=== PATIENT | male | born 1970 | race Caucasian/White ===

== ENCOUNTER → 2017-09-20 07:39 | Outpatient (CLI) | payer OTHER, SELFPAY ==
[2017-09-20 09:27] LABS: Add Manual Diff / Slide Review NO; Basophils Percent Auto 1.1 % (0-2); Eosinophils Percent Auto 4.8 % (2-4); Hematocrit 43.7 % (41-53); Hemoglobin 15.1 g/dL (13.5-17.5); Lymphocytes Percent Auto 23.6 % (25-40); Mean Corpuscular HGB Conc 34.4 % (30-36); Mean Corpuscular Hemoglobin 32.1 PG (26-34); Mean Corpuscular Volume 93.3 fL (80-100); Monocytes Percent Auto 5.9 % (3-14); Neutrophils Absolute Auto 4200 /uL (3000-5900); Neutrophils Percent Auto 64.6 % (50-75); Platelet Count 188 X10^3/uL (150-400); Red Blood Cell Count 4.68 X10^6/uL (4.5-5.9); Red Cell Distribution Width 14.2 % (11.6-14.8); White Blood Cell Count 6.6 X10^3/uL (4.5-11.0)
[2017-09-20 09:36] LABS: Erythrocyte Sedimentation Rate 5 MM/HR (0-15)
[2017-09-20 09:42] LABS: C-Reactive Protein Quant 0.8 mg/dL (<1.0)
[2017-09-20 09:43] LABS: Rheumatoid Factor < 8.6 IU/mL (<12.0)
== END ==
PROVIDERS: PCP Family Medicine; Visit Provider Family Medicine
DX: M10.072 Idiopathic gout, left ankle and foot (principal)
CPT/HCPCS: 36415; 84550; 85025; 85651; 86140; 86430

== ENCOUNTER → 2020-04-29 08:34 | Outpatient (CLI) | payer OTHER, SELFPAY ==
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
== END ==
PROVIDERS: PCP Family Medicine; Referring Provider Nurse Practitioner Family; Visit Provider Nurse Practitioner Family
DX: M79.89 Other specified soft tissue disorders (principal)
CPT/HCPCS: 73140

== ENCOUNTER → 2020-05-11 15:17 | Outpatient (CLI) | payer OTHER, SELFPAY ==
[2020-05-11] MEDS: COVID-19 VACC, Ad26(JANSSEN)/PF 0.5 ML IM (15:26)
== END ==
PROVIDERS: PCP Family Medicine; Visit Provider Internal Medicine
DX: Z23 Encounter for immunization (principal)
CPT/HCPCS: 0031A; 91303

== ENCOUNTER → 2023-05-03 13:56 | Outpatient (CLI) | payer OTHER, SELFPAY ==
[2023-05-05 01:06] LABS: Fecal Immunochemical Test Negative (Negative)
== END ==
PROVIDERS: PCP Family Medicine; Referring Provider Family Medicine; Visit Provider Family Medicine
DX: Z12.11 Encounter for screening for malignant neoplasm of colon (principal)
CPT/HCPCS: 82274

== ENCOUNTER → 2023-10-11 08:16 | Outpatient (CLI) | payer OTHER, SELFPAY ==
[2023-10-11 08:53] LABS: Add Manual Diff / Slide Review NO; Basophils Absolute Auto 100 /uL (0-100); Basophils Percent Auto 0.7 % (0-2); Eosinophils Absolute Auto 100 /uL (0-450); Eosinophils Percent Auto 2.1 % (2-4); Hemoglobin 15.5 g/dL (13.5-17.5); Lymphocytes Absolute Auto 1800 /uL (1100-4500); Lymphocytes Percent Auto 26.2 % (25-40); Mean Corpuscular HGB Conc 34.5 % (30-36); Mean Corpuscular Hemoglobin 31.5 PG (26-34); Mean Corpuscular Volume 91.3 fL (80-100); Monocytes Absolute Auto 400 /uL (0-900); Monocytes Percent Auto 6.3 % (3-14); Neutrophils Absolute Auto 4500 /uL (1500-7000); Neutrophils Percent Auto 64.7 % (50-75); Platelet Count 167 X10^3/uL (150-400); Red Blood Cell Count 4.93 X10^6/uL (4.5-5.9); Red Cell Distribution Width 13.2 % (11.6-14.8)
[2023-10-11 09:13] LABS: Alanine Aminotransferase 46 IU/L (<50); Albumin 4.6 g/dL (3.5-5.0); Alkaline Phosphatase 111 U/L (38-126); Aspartate Aminotransferase 32 IU/L (17-59); BUN Creatinine Ratio 17.6 (6-22); Bilirubin Total 0.5 mg/dL (0.2-1.3); Blood Urea Nitrogen 18 mg/dL (9-20); Calcium 9.6 mg/dL (8.4-10.2); Carbon Dioxide 24 mmol/L (22-32); Chloride 108 mmol/L (98-107); Cholesterol 186 mg/dL (140-199); Estimated Glomerular Filt Rate > 60 mL/min (>60); Globulin 2.3 g/dL (1.7-4.1); Glucose 103 mg/dL (70-100); HDL Cholesterol 47 mg/dL (40-60); HEMOLYSIS < 15 (0-50); LDL Cholesterol Calculated 85 mg/dL (<100); Potassium 4.5 mmol/L (3.4-5.1); Sodium 139 mmol/L (137-145); Total Protein 6.9 g/dL (6.3-8.2); Triglycerides 270 mg/dL (35-150)
[2023-10-11 09:40] LABS: TSH w/ Reflex to FT4 2.38 uIU/mL (0.47-4.68)
== END ==
PROVIDERS: PCP Family Medicine; Referring Provider Family Medicine; Visit Provider Family Medicine
DX: M10.00 Idiopathic gout, unspecified site (principal)
CPT/HCPCS: 36415; 80053; 80061; 84443; 84550; 85025